=== PATIENT | female | born 1965 | race Caucasian/White ===

== ENCOUNTER 2020-07-03 10:24 | Inpatient (IN) | payer OTHER ==
[2020-07-03 12:39] VITALS: BMI 31.8
[2020-07-03] MEDS ORDERED: IBUPROFEN 400 MG TABLET (FP) PO PRN (13:10)
[2020-07-03] MEDS ORDERED: MAG HYDROX/AL HYDROX/SIMETH 30 ML UNIT-DOSE CUP PO PRN (13:10)
[2020-07-03] MEDS ORDERED: BISMUTH SUBSALICYLATE 524 MG/30 ML UD PO PRN (13:10)
[2020-07-03] MEDS ORDERED: MENTHOL/PHENOL 1 EACH UD MM PRN (13:10)
[2020-07-03] MEDS ORDERED: NICOTINE POLACRILEX 2 MG GUM BUC PRN (13:10)
[2020-07-03] MEDS ORDERED: ONDANSETRON *ODT* 4 MG TABLET SL PRN (13:10)
[2020-07-03] MEDS ORDERED: ACETAMINOPHEN 325 MG TABLET (FP) PO PRN ×2 (13:10)
[2020-07-03] MEDS ORDERED: MAGNESIUM HYDROX 2400MG/30ML ORAL SUSPENSION 30 ML CUP PO PRN (13:10)
[2020-07-03] MEDS ORDERED: METHOCARBAMOL 500 MG TABLET PO PRN (13:10)
[2020-07-03] MEDS ORDERED: MAGNESIUM CITRATE 300 ML BOTTLE PO PRN (13:10)
[2020-07-03] MEDS ORDERED: diazePAM 5 MG TABLET PO PRN (13:10)
[2020-07-03] MEDS: NICOTINE 21 MG/24 HOURS TOPICAL PATCH TD SCH (14:41)
[2020-07-03] MEDS: hydrOXYzine PAMOATE 25 MG CAPSULE (FP) PO SCH ×3 (14:45→22:19)
[2020-07-03] MEDS: diazePAM 5 MG TABLET PO SCH ×2 (18:04→22:18)
[2020-07-03] MEDS: ATORVASTATIN CA 40 MG TABLET (FP) PO SCH (22:18)
[2020-07-03] MEDS: MELATONIN 5 MG TABLETS PO SCH (22:18)
[2020-07-03] MEDS: THIAMINE HCL 100 MG TABLET (FP) PO SCH (22:18)
[2020-07-04] MEDS: hydrOXYzine PAMOATE 25 MG CAPSULE (FP) PO SCH ×5 (06:21→22:25)
[2020-07-04] MEDS: diazePAM 5 MG TABLET PO SCH ×4 (06:21→22:25)
[2020-07-04] MEDS ORDERED: PATIENT'S OWN MEDICATION (NON-FORMULARY) (Lisinopril/Hydrochlorothiazide [Lisinopril-Hctz PO SCH (10:00)
[2020-07-04] MEDS: NICOTINE 21 MG/24 HOURS TOPICAL PATCH TD SCH (10:29)
[2020-07-04] MEDS: PRENATAL VITAMINS W/ FOLIC ACID TABLET (FP) PO SCH (10:32)
[2020-07-04] MEDS: LISINOPRIL 10 MG TABLET PO SCH (10:32)
[2020-07-04 10:56] LABS: CALCIUM 9.3 mg/dL (8.5-10.1); HEMATOCRIT 38.9 % (32.4-45.2); MCH 30.8 pg (25.7-33.7); MCHC 33.5 g/dl (32.0-36.0); MEAN CELL VOLUME 91.9 fl (80-96); MEAN PLT VOLUME 8.1 fl (7.5-11.1); PLATELET COUNT 306 K/MM3 (134-434); RBC 4.23 M/mm3 (3.60-5.2); RDW 12.7 % (11.6-15.6); WHITE BLOOD COUNT 7.1 K/mm3 (4.0-10.0)
[2020-07-04 10:58] LABS: ALBUMIN 3.3 g/dl (3.4-5.0); BLOOD UREA NITROGEN 13.7 mg/dL (7-18)
[2020-07-04 11:00] LABS: CREATININE 0.7 mg/dL (0.55-1.3)
[2020-07-04 11:02] LABS: BILIRUBIN,TOTAL 0.4 mg/dL (0.2-1); POTASSIUM 4.3 mmol/L (3.5-5.1); TOT PROT 6.7 g/dl (6.4-8.2)
[2020-07-04] MEDS ORDERED: METHADONE HCL 10 MG TABLET PO ONE (11:32)
[2020-07-04] MEDS ORDERED: METHADONE 40 MG, METHADONE 20 MG PO ONE (11:50)
[2020-07-04] MEDS ORDERED: METHADONE HCL 10 MG TABLET ONE (12:03)
[2020-07-04] MEDS ORDERED: METHADONE HCL 40 MG DISPERSABLE TABLET ONE (12:03)
[2020-07-04] MEDS: HYDROCHLOROTHIAZIDE 12.5 MG CAPSULE (FP) PO SCH (12:42)
[2020-07-04] MEDS ORDERED: SUVOREXANT 10 MG TABLET PO PRN (22:00)
[2020-07-04] MEDS: THIAMINE HCL 100 MG TABLET (FP) PO SCH (22:25)
[2020-07-04] MEDS: ATORVASTATIN CA 40 MG TABLET (FP) PO SCH (22:25)
[2020-07-04] MEDS: MELATONIN 5 MG TABLETS PO SCH (22:25)
[2020-07-05] MEDS ORDERED: METHADONE HCL 10 MG TABLET ONE (05:27)
[2020-07-05] MEDS ORDERED: METHADONE HCL 40 MG DISPERSABLE TABLET ONE (05:28)
[2020-07-05] MEDS ORDERED: METHADONE 40 MG, METHADONE 20 MG PO SCH (06:00)
[2020-07-05] MEDS ORDERED: METHADONE HCL 10 MG TABLET PO SCH (06:00)
[2020-07-05] MEDS: hydrOXYzine PAMOATE 25 MG CAPSULE (FP) PO SCH ×3 (06:28→14:33)
[2020-07-05] MEDS: diazePAM 5 MG TABLET PO SCH ×2 (06:34→14:33)
[2020-07-05] MEDS: PRENATAL VITAMINS W/ FOLIC ACID TABLET (FP) PO SCH (11:04)
[2020-07-05] MEDS: HYDROCHLOROTHIAZIDE 12.5 MG CAPSULE (FP) PO SCH (11:04)
[2020-07-05] MEDS: LISINOPRIL 10 MG TABLET PO SCH (11:04)
[2020-07-05] MEDS: NICOTINE 21 MG/24 HOURS TOPICAL PATCH TD SCH (11:05)
[2020-07-05 15:24] VITALS: BP 121/75; TEMP 98.4
[2020-07-05 17:28] VITALS: PULSE 70
[2020-07-06] MEDS ORDERED: diazePAM 5 MG TABLET PO SCH (06:00)
[2020-07-07] MEDS ORDERED: diazePAM 5 MG TABLET PO ONE (06:00)
== END 2020-07-05 18:44 | disposition left against medical advice (07) | DRG 894 ==
LOC: YASAS 10:24 → Y6N 13:07
PROVIDERS: ADMIT Allergy & Immunology; ATTEND Allergy & Immunology
PROC: HZ2ZZZZ Detoxification Services for Substance Abuse Treatment (ICD-10-PCS; principal; 2020-07-03)
DX: F13.230 Sedative, hypnotic or anxiolytic dependence with withdrawal, uncomplicated (principal); F11.20 Opioid dependence, uncomplicated; F19.282 Other psychoactive substance dependence with psychoactive substance-induced sleep disorder; F17.210 Nicotine dependence, cigarettes, uncomplicated; F31.9 Bipolar disorder, unspecified; G62.9 Polyneuropathy, unspecified; I10 Essential (primary) hypertension; E78.5 Hyperlipidemia, unspecified; G47.00 Insomnia, unspecified; M21.331 Wrist drop, right wrist; Z62.810 Personal history of physical and sexual abuse in childhood; Z98.890 Other specified postprocedural states; Z88.1 Allergy status to other antibiotic agents
CPT/HCPCS: 36415; 80053; 85027; 86780; 93005; 93010; C9803; U0003